=== PATIENT | female | born 1985 | race Asian ===

== ENCOUNTER 2020-03-19 13:07 | Inpatient (IN) | payer BC, OTHER ==
[2020-03-19 14:50] LABS: #Lymphocytes 1.6 thou/uL (1.20-3.40); #Monocytes 0.2 thou/uL (0.11-0.59); %Basophils 0.7 % (0.0-1.0); %Eosinophils 0.2 % (0.0-10.0); %Lymphocytes 26.5 % (21.0-51.0); %Monocytes 4.2 % (0.0-10.0); %Neutrophils 68.4 % (42.0-75.0); Hemoglobin 13.8 g/dL (12.0-16.0); Mean Corpuscular HGB CONC 32.6 g/dL (32.0-36.0); Mean Corpuscular Hemoglobin 32.4 pg (27.0-31.0); Mean Corpuscular Volume 99.5 fL (78.0-98.0); Mean Platelet Volume 9.9 fL (7.4-10.4); Platelet Count 179 thou/uL (130-400); RBC Distribution Width 12.3 % (11.5-14.5); Red Blood Cell (RBC) Count 4.27 mill/uL (4.20-5.40); White Blood Cell (WBC) Count 5.9 thou/uL (4.8-10.8)
[2020-03-19 15:08] LABS: BHCG - Serum Negative (NEGATIVE); Pregs Control Background? CLEAR/WHITE (CLR/WHITE); Pregs Control Bar Appear? YES (CONTROL BAR)
[2020-03-19 15:11] LABS: ALT (SGPT) 20 U/L (8-55); AST (SGOT) 21 U/L (5-34); Albumin 4.3 g/dL (3.5-5.0); Alkaline Phosphatase 45 U/L (40-110); Anion Gap 13 mmol/L (10-20); BUN (Urea Nitrogen) 10 mg/dL (7.0-18.7); Bilirubin, Total 0.4 mg/dL (0.2-1.2); Calc. Creatinine Clearance 0 mL/min (70-130); Calcium 9.1 mg/dL (7.8-10.44); Carbon Dioxide 26 mmol/L (22-29); Chloride 104 mmol/L (98-107); Estimated GFR-MDRD Greater than 90; Globulin 3.2 g/dL (2.4-3.5); Glucose 116 mg/dL (70-105); Potassium 3.9 mmol/L (3.5-5.1); Protein, Total 7.5 g/dL (6.0-8.3); Sodium 139 mmol/L (136-145)
--- NOTE | 2020-03-19 15:17 | CT ---
CT BRAIN WITHOUT CONTRAST: HISTORY: Multiple sclerosis exacerbation FINDINGS: No evidence of acute infarct, hemorrhage, midline shift or abnormal extra-axial fluid collections is seen. The ventricular size is appropriate and the basilar cisterns are patent. The bony calvarium is intact. The visualized paranasal sinuses and mastoid air cells are well aerated. IMPRESSION: No CT evidence of acute intracranial process. Contrast-enhanced MRI would be helpful for better evaluation.
[2020-03-19] MEDS ORDERED: DEXTROSE 5% IVPB SCH (16:00)
[2020-03-19] MEDS ORDERED: WATER IVPB SCH (16:00)
[2020-03-19] MEDS ORDERED: [UNRECOGNIZED DRUG - OTHER] IVPB SCH (16:00)
[2020-03-19] MEDS ORDERED: methylPREDNISolone Sod Succ 1,000 MG in Sodium Chloride 0.9% 100 ML IVPB SCH (16:00)
[2020-03-19] MEDS ORDERED: Calcium Carbonate 500 MG ChewTAB PO PRN (17:24)
[2020-03-19] MEDS ORDERED: Guaifenesin DM 100-10/5 ML UDCUP PO PRN (17:24)
[2020-03-19] MEDS ORDERED: Bisacodyl 10 MG SUPP PR PRN (17:24)
[2020-03-19] MEDS ORDERED: Senokot S 8.6-50 MG TAB PO PRN (17:24)
[2020-03-19] MEDS ORDERED: Ondansetron PF 4 MG/2 ML Vial IVP PRN (17:24)
[2020-03-19] MEDS ORDERED: HYDROcodone/Acetaminophen 5/325 mg Tablet PO PRN (17:24)
[2020-03-19] MEDS ORDERED: Acetaminophen 325 MG TAB PO PRN (17:24)
--- NOTE | 2020-03-19 19:10 | HP ---
REASON FOR ADMISSION: Possible multiple sclerosis flare up. HISTORY OF PRESENTING ILLNESS: The patient gives history of having weakness in her thigh muscles and had difficulty walking from last 3 days now. This has been progressively getting worse with the patient falling multiple times. She is able to take five steps, but then becomes very weak after that. She has known history of multiple sclerosis diagnosed 10 years back. This was diagnosed in [facility]. She had MRI and CSF analysis done as well for initial episode of visual loss. She was given high-dose steroids then and was not placed on any maintenance therapy. Two years back in 2018, the patient had visual symptoms including blurry vision and visual loss, but then gained back all of it with another round of steroid therapy. She was offered maintenance therapy, but the patient had refused them. She moved this year to .. 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 She had some visual symptoms day before with loss of central vision, but her vision is back to normal this morning. She has no complaints of difficulty breathing. She has no complaints of chest pain. No exposure to COVID-19 virus or fever. The patient states it was stressful moving here with the start of the college year. PAST MEDICAL AND SURGICAL HISTORY: History of multiple sclerosis diagnosed 10 years back. No surgical history. CURRENT MEDICATIONS: None. ALLERGIES: NO KNOWN DRUG ALLERGIES. PERSONAL HISTORY: Does not abuse alcohol or drugs. No history of smoking. FAMILY HISTORY: Both parents are healthy and living, who has a brother who is healthy as well. No family history of multiple sclerosis or autoimmune disease. 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 CODE STATUS: Full. Power of consumer attorney is her parents. REVIEW OF SYSTEMS: CONSTITUTIONAL: Negative for weight loss or gain, ability to conduct usual activities. SKIN: Negative for rash, itching. EYES: Negative for double vision, pain. ENT/MOUTH: Negative for nose bleeding, neck stiffness, pain, tenderness. CARDIOVASCULAR: Negative for palpitations, dyspnea on exertion, orthopnea. RESPIRATORY: Negative for shortness of breath, wheezing, cough, hemoptysis, fever or night sweats. GASTROINTESTINAL: Negative for poor appetite, abdominal pain, heartburn, nausea, vomiting, constipation, or diarrhea. GENITOURINARY: Negative for urgency, frequency, dysuria, nocturia. MUSCULOSKELETAL: Negative for pain, swelling. NEUROLOGIC/PSYCHIATRIC: Negative for anxiety, depression. ALLERGY/IMMUNOLOGIC: Negative for skin rash, bleeding tendency. PHYSICAL EXAMINATION: GENERAL: The patient is a 34-year-old female, who is currently not in any acute distress. VITAL SIGNS: Blood pressure 114/34, pulse 70 per minute, respiratory rate 16 per minute, temperature 97.7 degrees Fahrenheit, saturating 98% on room air. NECK: Supple. No elevated JVD. HEENT: Eyes; extraocular muscles intact. Pupils reacting to light. Oral cavity, mucous membranes are moist. No exudates or congestion. CARDIOVASCULAR SYSTEM: S1 and S2 heard. Regular rhythm. RESPIRATORY SYSTEM: Air entry 2+ bilateral. No rales or rhonchi. ABDOMEN: Soft. Bowel sounds heard. No tenderness, rigidity, or guarding. EXTREMITIES: No peripheral edema or calf tenderness. VASCULAR SYSTEM: Peripheral pulses 2+ bilateral. No ischemic ulcerations or gangrene. CENTRAL NERVOUS SYSTEM: Cranial nerves are grossly intact. Motor system, strength in right lower extremity is 4/5. All other extremities are 5/5. Reflexes are 2+ bilateral. Babinski is downgoing. Gait was not tested. PSYCHIATRIC SYSTEM: The patient's mood is euthymic. No hallucinations or delusions. LABORATORY DATA: H and H 13 and 42, platelet count is 179, white count of 5.9, MCV is 99 with 68% neutrophils. BUN 10, creatinine 0.7, serum glucose is 116, serum bicarb is 26. LFTs are within normal limits. Albumin 4.3. Serum test is negative. CT brain done shows no acute intracranial process. CLINICAL IMPRESSION AND PLAN: The patient will be admitted to stroke unit for possible multiple sclerosis flare up. ER physician has spoken to Dr. Jones and has been advised to give methylprednisolone 1 g IV for a total of three days. She will be on Protonix 40 mg daily along with low-dose aspirin. We will obtain MRI with contrast. COVID-19 PCR test will be done as well. We will also obtain consultation with Dr. Jones for Neurology. The patient has had waxing and waning neurologic symptoms from last 3 days now. Her first initial diagnosis was 10 years back. She had flare up two years back and her third flare up has come back within two years. Likely, she will need maintenance therapy after her current recovery. I have counseled her regarding compliance with maintenance therapy. She taking any medications on a daily basis. Job ID: [id number]
[2020-03-19 22:40] VITALS: BMI 19.8
[2020-03-20 06:14] LABS: ALT (SGPT) 15 U/L (8-55); AST (SGOT) 14 U/L (5-34); Alkaline Phosphatase 44 U/L (40-110); Anion Gap 15 mmol/L (10-20); BUN (Urea Nitrogen) 12 mg/dL (7.0-18.7); Bilirubin, Total 0.3 mg/dL (0.2-1.2); Calc. Creatinine Clearance 101 mL/min (70-130); Calcium 8.9 mg/dL (7.8-10.44); Carbon Dioxide 21 mmol/L (22-29); Chloride 107 mmol/L (98-107); Estimated GFR-MDRD Greater than 90; Globulin 3.1 g/dL (2.4-3.5); Glucose 173 mg/dL (70-105); Potassium 4.1 mmol/L (3.5-5.1); Protein, Total 7.1 g/dL (6.0-8.3); Sodium 139 mmol/L (136-145)
[2020-03-20] MEDS ORDERED: Dextrose 5% in Water 1,000 ML IV PRN (07:28)
[2020-03-20] MEDS ORDERED: Dextrose 50% Abboject 50 ML SYRINGE SLOW IVP PRN (07:28)
[2020-03-20] MEDS ORDERED: methylPREDNISolone Sod Succ/PF 125 MG/2 ML VIAL IVP SCH (09:00)
[2020-03-20] MEDS ORDERED: Hydrocortisone Sod Succ/PF 1,000 MG in Sodium Chloride 0.9% 50 ML IVPB SCH (09:00)
[2020-03-20] MEDS: Cyanocobalamin (Vitamin B-12) 1,000 MCG TAB PO SCH (09:25)
[2020-03-20] MEDS: Aspirin Chewable 81 MG TAB PO SCH (09:26)
[2020-03-20] MEDS: Enoxaparin Sodium 40 MG/0.4 ML SYRINGE SC SCH (09:27)
--- NOTE | 2020-03-20 09:27 | MRI ---
MRI BRAIN WITH AND WITHOUT CONTRAST: INDICATION: MS. COMPARISON: No prior MRI available. Correlation made to CT of 03/19/2020. FINDINGS: Ventricles have normal size and position.. There are scattered white matter hyperintensities consistent with the history of MS. Several of thes e intensities have characteristics typical of Max's fingers consistent with the history of MS. There is a large asymmetric area of white matter hypointensity on FLARE and T2 in the posterior periv entricular white matter extending into the centrum semiovale measuring up to 2 cm. This asymmetric l esion shows dense central enhancement and would indicate an active MS plaque. There is no restricted diffusion. No other abnormal enhancement. Intracranial internal carotid arteries, cerebral arteries, basilar arteries, and venous sinuses show expected flow voids. Paranasal sinuses and mastoids are clear. IMPRESSION: There are white matter hyperintensities which are consistent with the history of multiple sclerosis. There is a large asymmetric lesion in the posterior periventricular white matter on the left extendi ng into the centrum semiovale measuring up to 2 cm. This lesion demonstrates dense central enhanceme nt and would indicate an active demyelination plaque. Suggest short-term followup. Comparison with old exams would be of benefit to assess interval change. POS: ALETHA
[2020-03-20] MEDS: Folic Acid 1 MG TAB PO SCH (09:28)
[2020-03-20] MEDS: methylPREDNISolone Sod Succ 1 GM in Sodium Chloride 0.9% 250 ML 250 ML IVPB SCH (09:28)
--- NOTE | 2020-03-20 11:04 | PDOC.HOSPP ---
- Subjective Encounter Date: 03/20/20 Encounter Time: 10:00 Subjective: no new neurologic complaints still has right thigh muscle weakness and left leg parasthesias (has normal touch but cannot feel prick or deep pain) no trouble breathing - Objective Vital Signs & Weight: Vital Signs (12 hours) Temp Pulse Pulse Resp BP BP BP 03/20/20 09:43 57 L 114/56 L 118/55 L 03/20/20 07:30 97.9 F 45 L 15 100/51 L 03/20/20 03:53 98.1 F 51 L 14 99/53 L 03/19/20 23:44 98 F 60 16 98/51 L Pulse Ox 03/20/20 09:43 03/20/20 07:30 97 03/20/20 03:53 97 03/19/20 23:44 96 Weight Weight 128 lb I&O: 03/19/20 03/20/20 03/21/20 06:59 06:59 06:59 Intake Total 200 120 Balance 200 120 Result Diagrams: 03/19/20 14:40 03/20/20 04:14 Additional Labs: Accuchecks 03/20/20 10:26 POC Glucose 185 H Hospitalist ROS - Medication Medications: Active Medications Generic Name Dose Route Start Last Admin Trade Name Freq PRN Reason Stop Dose Admin Aspirin 81 mg 03/20/20 09:00 03/20/20 09:26 Aspirin Chewable PO 81 mg DAILY SHAHNAZ Administration Cyanocobalamin 1,000 mcg 03/20/20 09:00 03/20/20 09:25 Vitamin B-12 PO 1,000 mcg DAILY SHAHNAZ Administration Enoxaparin Sodium 40 mg 03/20/20 09:00 03/20/20 09:27 Lovenox SC 40 mg 09 SHAHNAZ Administration Folic Acid 1 mg 03/20/20 09:00 03/20/20 09:28 Folvite PO 1 mg DAILY SHAHNAZ Administration Methylprednisolone Sodium 266 mls @ 266 mls/hr 03/20/20 09:00 03/20/20 09:28 Succinate 1 gm/ Sodium IVPB 266 mls Chloride Q24HR SHAHNAZ Administration Pantoprazole Sodium 40 mg 03/19/20 21:00 03/20/20 09:25 Protonix PO 40 mg BID SHAHNAZ Administration Sodium Chloride 10 ml 03/19/20 21:00 03/20/20 09:28 Flush - Normal Saline IVF 10 ml Q12HR SHAHNAZ Administration - Exam General Appearance: awake alert Eye: PERRL, anicteric sclera ENT: no oropharyngeal lesions, moist mucosa Neck: supple, no JVD Heart: RRR, no murmur Respiratory: no wheezes, no rales Gastrointestinal: soft, non-tender, non-distended, normal bowel sounds Extremities: no cyanosis, no edema Neurological: cranial nerve grossly intact Neurological - other findings: right leg 4/5, parasthesias in left leg/foot area Psychiatric: normal affect, A&O x 3 Hosp A/P (1) Multiple sclerosis exacerbation Code(s): G35 - MULTIPLE SCLEROSIS Status: Acute (2) Glucose intolerance Code(s): E74.39 - OTHER DISORDERS OF INTESTINAL CARBOHYDRATE ABSORPTION Status : Acute - Plan is on methylprednisolone 1g daily x 3 days, 2nd dose today humalog coverage for glucose intolerance sec to high dose steroids MRI results noted neuro to see her today, will need maintenance treatment due to her exac freq PT/OT to mobilize her as tolerated
[2020-03-20] MEDS: HumaLOG 300 UNITS/3 ML VIAL SC PRN ×2 (11:09→17:07)
[2020-03-20 11:48] LABS: SARS-CoV-2 MS2 Positive; SARS-CoV-2 N Gene Negative; SARS-CoV-2 S Gene Negative; SARS-CoV-2 by NAA Not Detected (NotDetected); SARS-CoV-2 orf1ab Negative
[2020-03-20] MEDS ORDERED: Magnevist 469MG/ML 20 ML VIAL ONE (13:09)
--- NOTE | 2020-03-20 13:11 | CON ---
NEUROLOGY CONSULTATION DATE OF CONSULTATION: 03/20/2020 REASON FOR CONSULTATION: Multiple sclerosis exacerbation. HISTORY OF PRESENT ILLNESS: Ms. Glover is a 34-year-old female with history of multiple sclerosis diagnosed 10 years ago, not on any long-term immunomodulating agent, presented to the emergency room with 3-day weakness of the lower extremities and difficulty walking. Per patient, she became progressively weak over the last 3 days and then came to the hospital because there was a concern of MS exacerbation. According to the patient her previous exacerbation are usually blurred vision and difficulty to focus. However, this is the 1st time she had weakness in the lower extremity. The patient denies any problem with urination, difficulty breathing, swallowing or speech or focal weakness, dizziness, vertigo, urinary urgency or loss of vision associated with this episode. She was diagnosed with multiple sclerosis through MRI and CSF analysis in [facility] and long-term immunomodulating therapy was offered, but she declined at that time. 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 She also complained of some problem with central vision which resolves on its own. REVIEW OF SYSTEMS: The patient denies nausea, vomiting, headache, dizziness, recent illness or sick contacts or exposure to COVID. On review of systems all 14 systems were reviewed and were negative except the pertinent positives and negatives mentioned in the HPI. PAST MEDICAL HISTORY: Multiple sclerosis diagnosed 10 years ago. PAST SURGICAL HISTORY: None. CURRENT MEDICATIONS: None. ALLERGIES: NO KNOWN DRUG ALLERGIES. 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 She denies alcohol, illegal drug abuse or smoking. FAMILY HISTORY: The no family history of multiple sclerosis or autoimmune disease. - Objective Vital Signs & Weight: Vital Signs (12 hours) Temp Pulse Pulse Resp BP BP BP 03/20/20 09:43 57 L 114/56 L 118/55 L 03/20/20 07:30 97.9 F 45 L 15 100/51 L 03/20/20 03:53 98.1 F 51 L 14 99/53 L 03/19/20 23:44 98 F 60 16 98/51 L Pulse Ox 03/20/20 09:43 03/20/20 07:30 97 03/20/20 03:53 97 03/19/20 23:44 96 Weight Weight 128 lb I&O: 03/19/20 03/20/20 03/21/20 06:59 06:59 06:59 Intake Total 200 120 Balance 200 120 Additional Labs: Accuchecks 03/20/20 10:26 POC Glucose 185 H Active Medications Generic Name Dose Route Start Last Admin Trade Name Gina PRN Reason Stop Dose Admin Aspirin 81 mg 03/20/20 09:00 03/20/20 09:26 Aspirin Chewable PO 81 mg DAILY SHAHNAZ Administration Cyanocobalamin 1,000 mcg 03/20/20 09:00 03/20/20 09:25 Vitamin B-12 PO 1,000 mcg DAILY SHAHNAZ Administration Enoxaparin Sodium 40 mg 03/20/20 09:00 03/20/20 09:27 Lovenox SC 40 mg 09 SHAHNAZ Administration Folic Acid 1 mg 03/20/20 09:00 03/20/20 09:28 Folvite PO 1 mg DAILY SHAHNAZ Administration Methylprednisolone Sodium 266 mls @ 266 mls/hr 03/20/20 09:00 03/20/20 09:28 Succinate 1 gm/ Sodium IVPB 266 mls Chloride Q24HR SHAHNAZ Administration Pantoprazole Sodium 40 mg 03/19/20 21:00 03/20/20 09:25 Protonix PO 40 mg BID SHAHNAZ Administration Sodium Chloride 10 ml 03/19/20 21:00 03/20/20 09:28 Flush - Normal Saline IVF 10 ml Q12HR SHAHNAZ Administration - Exam General Appearance: awake alert Eye: PERRL, anicteric sclera ENT: no oropharyngeal lesions, moist mucosa Neck: supple, no JVD Heart: RRR, no murmur Respiratory: no wheezes, no rales Gastrointestinal: soft, non-tender, non-distended, normal bowel sounds Extremities: no cyanosis, no edema Neurological: : Mental status: The patient is alert and oriented to person, place, and time. Speech is clear. Recent and remote memory intact. Fund of knowledge is appropriate. Cranial nerves 2 through 12 intact. Motor, muscle tone and bulk are normal. Strength 5/5 in the upper extremity, 4+/5 in the right lower extremity. Sensory Decreased sensation in left LE Gait deferred due to patient's safety reasons. Cerebellar: Finger-nose testing intact. \ LABORATORY DATA: Data reviewed. I reviewed the labs which were essentially unremarkable. MRI of the brain with contrast was reviewed, which was consistent with demyelinating lesions consistent with multiple sclerosis. There is also active demyelinating region in the posterior periventricular white matter consistent with the patient's MS exacerbation. Hosp A/P (1) Multiple sclerosis exacerbation Code(s): G35 - MULTIPLE SCLEROSIS Status: Acute (2) Glucose intolerance Ms. Jared Glover is admitted to the Neurology floor for multiple sclerosis exacerbation. MRI brain with contrast confirmed recent flare. Continue Solu-Medrol 1 g intravenously q. 24 hours for 3 days. Today is day #2. Regular insulin sliding scale for steroid-induced hyperglycemia. Proton pump inhibitor for steroid-induced gastroesophageal reflux disease. Neuro checks every 4 hours. Physical Therapy/Occupatinoal Therapy/Speech. Continue medical management per primary team. The patient should follow up with outpatient neurology to discuss the option of long-term treatment . Plan discussed in detail with the with the patient, nursing staff and with the primary attending, Dr. Don. Job ID: [id number] MTDD
[2020-03-21 04:51] LABS: #Lymphocytes 1.9 thou/uL (1.20-3.40); #Monocytes 0.7 thou/uL (0.11-0.59); %Basophils 0.2 % (0.0-1.0); %Eosinophils 0.2 % (0.0-10.0); %Lymphocytes 13.2 % (21.0-51.0); %Monocytes 4.8 % (0.0-10.0); %Neutrophils 81.6 % (42.0-75.0); Hemoglobin 12.7 g/dL (12.0-16.0); Mean Corpuscular HGB CONC 32.6 g/dL (32.0-36.0); Mean Corpuscular Hemoglobin 32.5 pg (27.0-31.0); Mean Corpuscular Volume 99.6 fL (78.0-98.0); Platelet Count 172 thou/uL (130-400); RBC Distribution Width 12.4 % (11.5-14.5); White Blood Cell (WBC) Count 14.7 thou/uL (4.8-10.8)
[2020-03-21 05:13] LABS: ALT (SGPT) 14 U/L (8-55); AST (SGOT) 16 U/L (5-34); Albumin 3.9 g/dL (3.5-5.0); Alkaline Phosphatase 43 U/L (40-110); Anion Gap 12 mmol/L (10-20); BUN (Urea Nitrogen) 11 mg/dL (7.0-18.7); Bilirubin, Total 0.3 mg/dL (0.2-1.2); Calc. Creatinine Clearance 103 mL/min (70-130); Calcium 9.2 mg/dL (7.8-10.44); Carbon Dioxide 28 mmol/L (22-29); Chloride 105 mmol/L (98-107); Estimated GFR-MDRD Greater than 90; Globulin 3.2 g/dL (2.4-3.5); Glucose 143 mg/dL (70-105); Potassium 4.1 mmol/L (3.5-5.1); Protein, Total 7.1 g/dL (6.0-8.3); Sodium 141 mmol/L (136-145)
[2020-03-21 07:31] VITALS: BP 113/55; TEMP 97.9
[2020-03-21] MEDS: Folic Acid 1 MG TAB PO SCH (08:30)
[2020-03-21] MEDS: Cyanocobalamin (Vitamin B-12) 1,000 MCG TAB PO SCH (08:30)
[2020-03-21] MEDS: methylPREDNISolone Sod Succ 1 GM in Sodium Chloride 0.9% 250 ML 250 ML IVPB SCH (08:31)
[2020-03-21] MEDS: Enoxaparin Sodium 40 MG/0.4 ML SYRINGE SC SCH (09:01)
[2020-03-21] MEDS: Aspirin Chewable 81 MG TAB PO SCH (09:02)
--- NOTE | 2020-03-21 15:20 | DIS ---
DATE OF ADMISSION: 03/19/2020 DATE OF DISCHARGE: 03/21/2020 DISCHARGE DISPOSITION: To home. PRIMARY DISCHARGE DIAGNOSES: Multiple sclerosis exacerbation, glucose intolerance due to high-dose steroids. PROCEDURES DONE DURING HOSPITALIZATION: MRI brain with and without contrast done showed white matter hyperintensities consistent with history of multiple sclerosis. There was a large asymmetric lesion in the posterior periventricular white matter on the left extending to the centrum semiovale measuring up to 2 cm. This lesion also demonstrated dense central enhancement and would indicate an active demyelination plaque. H and H 12 and 38, platelet count is 172, MCV is 99. BUN 11, creatinine 0.7, albumin 3.9. Serum test was negative. Folic acid 10, B12 of 525. COVID-19 PCR was not detected on 03/19/2020. DISCHARGE MEDICATIONS: 1. Folic acid 1 mg p.o. daily. 2. Multivitamin one tablet once daily. 3. Protonix 40 mg p.o. daily for another 10 days. DISCHARGE PLAN: The patient needs to follow up with Dr. Jones within a week. BRIEF COURSE DURING HOSPITALIZATION: The patient initially got admitted on 03/19/2020 with complaints of right thigh weakness and left leg paresthesias, specifically loss of pinprick and deep pain sensation in the left leg and ankle area. She has known history of multiple sclerosis diagnosed 10 years back. She had a flare up 2 years back with visual loss and regained complete vision then. In view of this history, the patient has had MRI with and without contrast done, which confirmed findings of MS plaque. She was evaluated by Dr. Timmons for Neurology. The patient was on methylprednisolone 1 g IV for a total of 3 doses. Her neurologic symptoms are slowly resolving. The patient has regained strength in her right thigh. Her left leg paresthesias are still present. The patient is wanting to go home today. She has been worried about her financial bills despite reassurance. The patient wants to follow up with Dr. Jones in the outpatient setting at the earliest. In view of this, she is being discharged home. Please note, I have seen and examined the patient on the day of discharge. Job ID: [id number]
--- NOTE | 2020-03-21 20:55 | EKG ---
Test Reason : Blood Pressure : / mmHG Vent. Rate : 053 BPM Atrial Rate : 053 BPM P-R Int : 164 ms QRS Dur : 090 ms QT Int : 464 ms P-R-T Axes : 064 071 067 degrees QTc Int : 435 ms Sinus bradycardia Cannot rule out Anterior infarct , age undetermined Abnormal ECG Confirmed by Carlie SIERRA ([id number]) on 03/21/2020 8:55:13 PM Referred By: SALMA Confirmed By:Carlie SIERRA
== END 2020-03-21 10:36 | disposition home or self-care (01) | DRG 60 ==
LOC: ERS 13:07 → 2SE 16:49
PROVIDERS: ADMIT Internal Medicine; ATTEND Internal Medicine
DX: G35 Multiple sclerosis (principal); T38.0X5A Adverse effect of glucocorticoids and synthetic analogues, initial encounter; R73.02 Impaired glucose tolerance (oral); Z20.828 Contact with and (suspected) exposure to other viral communicable diseases; K21.9 Gastro-esophageal reflux disease without esophagitis
CPT/HCPCS: 36415; 36416; 70450; 70553; 80053; 82607; 82746; 84443; 84484; 84703; 85025; 87635; 93005; 93010; 93306; 94760; A9579; J0210; J1650; J2930; J3490; J7050; J7070; U0003

== ENCOUNTER 2020-04-23 13:16 | Inpatient (IN) | payer BC, OTHER ==
[2020-04-23] MEDS ORDERED: Magnevist 469MG/ML 20 ML VIAL ONE (14:02)
[2020-04-23 14:33] LABS: #Lymphocytes 1.9 thou/uL (1.20-3.40); #Monocytes 0.4 thou/uL (0.11-0.59); #Neutrophils 4.4 thou/uL (1.40-6.50); %Basophils 0.6 % (0.0-1.0); %Eosinophils 0.3 % (0.0-10.0); %Monocytes 5.9 % (0.0-10.0); %Neutrophils 65.2 % (42.0-75.0); Hemoglobin 13.7 g/dL (12.0-16.0); Mean Corpuscular HGB CONC 33.8 g/dL (32.0-36.0); Mean Corpuscular Hemoglobin 33.3 pg (27.0-31.0); Mean Corpuscular Volume 98.6 fL (78.0-98.0); Platelet Count 200 thou/uL (130-400); RBC Distribution Width 11.9 % (11.5-14.5); Red Blood Cell (RBC) Count 4.11 mill/uL (4.20-5.40); White Blood Cell (WBC) Count 6.7 thou/uL (4.8-10.8)
[2020-04-23 14:44] LABS: BHCG - Serum Negative (NEGATIVE); Pregs Control Background? CLEAR/WHITE (CLR/WHITE); Pregs Control Bar Appear? YES (CONTROL BAR)
[2020-04-23 14:55] LABS: ALT (SGPT) 10 U/L (8-55); AST (SGOT) 16 U/L (5-34); Albumin 4.5 g/dL (3.5-5.0); Alkaline Phosphatase 47 U/L (40-110); Anion Gap 12 mmol/L (10-20); BUN (Urea Nitrogen) 13 mg/dL (7.0-18.7); Bilirubin, Total 0.3 mg/dL (0.2-1.2); Calc. Creatinine Clearance 0 mL/min (70-130); Calcium 9.6 mg/dL (7.8-10.44); Carbon Dioxide 28 mmol/L (22-29); Chloride 103 mmol/L (98-107); Estimated GFR-MDRD 84; Globulin 3.2 g/dL (2.4-3.5); Glucose 102 mg/dL (70-105); Potassium 4.2 mmol/L (3.5-5.1); Protein, Total 7.7 g/dL (6.0-8.3); Sodium 139 mmol/L (136-145)
[2020-04-23] MEDS ORDERED: Pantoprazole 40 MG VIAL ONE (16:51)
[2020-04-23] MEDS ORDERED: SODIUM CHLORIDE 0.9% IVPB SCH (17:15)
[2020-04-23] MEDS ORDERED: METHYLPREDNISOLONE SOD SUCC IVPB SCH (17:15)
[2020-04-23] MEDS ORDERED: methylPREDNISolone Sod Succ 1 GM in Sodium Chloride 0.9% 100 ML IVPB SCH (17:45)
--- NOTE | 2020-04-23 18:05 | PDOC.HHP ---
Hospitalist HPI - History of Present Illness Lower leg weakness History of Present Illness: This is a 32-year-old female patient history of multiple sclerosis who presents with increasing spasticity of her left lower extremity and extensive weakness on the right lower extremity for the past couple of weeks. She was seen here approximately a month ago and was started on high-dose steroids. She however failed to follow-up with neurology. Given worsening symptoms return back to the ED for further assessment. He denies any fever, difficulty micturition, incontinence, upper limb weakness nausea vomiting diarrhea chills or chest pain. At presentation Blood pressure was 114/56, pulse 70, respiration rate 16 and temperature 97.9. Was saturating at 98% on room air. His labs are otherwise generally unrem arkable. In the ED was started on IV Solu-Medrol thousand milligrams. Also received pantoprazole Neurology was consulted and recommended admission with steroids. Hospitalist ROS - Review of Systems Constitutional: denies: fever, chills Respiratory: denies: cough, shortness of breath, hemoptysis, SOB with excertion Cardiovascular: denies: chest pain, palpitations, orthopnea, paroxysmal noc. dyspnea Genitourinary: denies: dysuria, frequency, incontinence, retention Neurological: reports: weakness (Right lower leg). denies: change in speech Other: Left leg spasticity Hospitalist History - Past Medical History Other Medical History: Multiple sclerosis - Past Surgical History Other Surgical History: None - Family History Other Family History: None of significance. 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 Supported by a friend - Exam General Appearance: awake alert Eye: PERRL, anicteric sclera Heart: RRR, no murmur, no gallops, normal peripheral pulses Respiratory: no wheezes, no rales, no ronchi, no tachypnea Gastrointestinal: soft, non-tender, non-distended, normal bowel sounds Extremities: no cyanosis, no clubbing, no edema Neurological: cranial nerve grossly intact, normal sensation to touch Neurological - other findings: , 5/5 in upper and lower limbs. Psychiatric: A&O x 3 Hospitalist Results - Labs Result Diagrams: 04/24/20 04:38 04/24/20 04:38 Lab results: WBC 6.7 thou/uL (4.8-10.8) 04/23/20 14:25 Hgb 13.7 g/dL (12.0-16.0) 04/23/20 14:25 Hct 40.5 % (36.0-47.0) 04/23/20 14:25 MCV 98.6 fL (78.0-98.0) H 04/23/20 14:25 Plt Count 200 thou/uL (130-400) 04/23/20 14:25 Neutrophils % 65.2 % (42.0-75.0) 04/23/20 14:25 Sodium 139 mmol/L (136-145) 04/23/20 14:25 Potassium 4.2 mmol/L (3.5-5.1) 04/23/20 14:25 Chloride 103 mmol/L (98-107) 04/23/20 14:25 Carbon Dioxide 28 mmol/L (22-29) 04/23/20 14:25 BUN 13 mg/dL (7.0-18.7) 04/23/20 14:25 Creatinine 0.79 mg/dL (0.6-1.1) 04/23/20 14:25 Glucose 102 mg/dL (70-105) 04/23/20 14:25 Calcium 9.6 mg/dL (7.8-10.44) 04/23/20 14:25 Total Bilirubin 0.3 mg/dL (0.2-1.2) 04/23/20 14:25 AST 16 U/L (5-34) 04/23/20 14:25 ALT 10 U/L (8-55) 04/23/20 14:25 Alkaline Phosphatase 47 U/L (40-110) 04/23/20 14:25 Serum Total Protein 7.7 g/dL (6.0-8.3) 04/23/20 14:25 Albumin 4.5 g/dL (3.5-5.0) 04/23/20 14:25 Hospitalist H&P A/P - Plan Plan: This is a 34-year-old female patient with a history of multiple sclerosis presen ting with right lower leg spasticity and left lower leg weakness concerning for multiple sclerosis flare. Multiple sclerosis flare Receiving Solu-Medrol thousand milligrams IVwe will continue For neurology evaluation in a.m. VTE prophylaxis-none
--- NOTE | 2020-04-23 18:39 | MRI ---
MRI BRAIN PERFORMED WITHOUT CONTRAST ENHANCEMENT: History: Exacerbation of MS symptoms. Comparison: 03-20-2020 FINDINGS: The ventricular and cisternal system is slightly prominent for patient's age. Mildly prominent sulci. The periventricular white matter changes which have a characteristic appearance of MS are similar to the prior exam. The one exception is the larger focus which showed enhancement on the prior examinati on in the left posterior periventricular white matter, definitely less prominent and shows less prono unced enhancement than on that examination. There is a much more prominent lesion which is T1 hypointense and T2 and FLAIR hyperintense at the le seble of the right cerebral peduncle. This is only a very subtle focus of signal change on the previous examination. It does show enhancement on the post contrast images which was not present on the prior study. No mass effect. IMPRESSION: 1. New MS lesion involving the right cerebral peduncle. 2. The periventricular white matter changes are similar with the exception of the more active focus t hat was seen in the left posterior periventricular region is less prominent and shows less pronounced enhancement on today's exam. POS: OFF
[2020-04-23] MEDS ORDERED: Acetaminophen 325 MG TAB PO PRN (21:32)
[2020-04-23] MEDS ORDERED: Ondansetron PF 4 MG/2 ML Vial IVP PRN (21:32)
[2020-04-23] MEDS ORDERED: Ondansetron ODT 4 MG TAB PO PRN (21:32)
[2020-04-23] MEDS ORDERED: Dextrose 5% in Water 1,000 ML IV PRN (21:33)
[2020-04-23] MEDS ORDERED: HumaLOG 300 UNITS/3 ML VIAL SC PRN (21:33)
[2020-04-23] MEDS ORDERED: Dextrose 50% Abboject 50 ML SYRINGE SLOW IVP PRN (21:33)
[2020-04-24 00:24] VITALS: BMI 20.9
[2020-04-24 05:20] LABS: Anion Gap 12 mmol/L (10-20); BUN (Urea Nitrogen) 12 mg/dL (7.0-18.7); Calc. Creatinine Clearance 112 mL/min (70-130); Calcium 8.8 mg/dL (7.8-10.44); Carbon Dioxide 24 mmol/L (22-29); Chloride 105 mmol/L (98-107); Estimated GFR-MDRD Greater than 90; Glucose 154 mg/dL (70-105); Potassium 4.1 mmol/L (3.5-5.1); Sodium 137 mmol/L (136-145)
[2020-04-24 05:39] LABS: Hemoglobin 13.3 g/dL (12.0-16.0); Mean Corpuscular HGB CONC 32.3 g/dL (32.0-36.0); Mean Corpuscular Volume 99.3 fL (78.0-98.0); Mean Platelet Volume 9.2 fL (7.4-10.4); Platelet Count 191 thou/uL (130-400); RBC Distribution Width 11.8 % (11.5-14.5); Red Blood Cell (RBC) Count 4.14 mill/uL (4.20-5.40); White Blood Cell (WBC) Count 5.9 thou/uL (4.8-10.8)
[2020-04-24 06:07] LABS: Band 7 % (5-11); Lymphocytes 21 % (21-51); MDiff Complete? YES; Monocytes 1 % (0-10); Neutrophil 68 % (42-75); Reactive Lymphocytes 3 % (0-10)
--- NOTE | 2020-04-24 09:31 | PDOC.HOSPP ---
- Subjective Encounter Date: 04/24/20 Encounter Time: 09:31 Subjective: Patient was seen and examined in bed. Showed a generally good night. Has no new complaints. Denies any chest pain or shortness of breath. Still has stiffness in her legs mainly on the right but denies any visual changes. - Objective Vital Signs & Weight: Vital Signs (12 hours) Temp Pulse Resp BP Pulse Ox 04/24/20 07:02 97.8 F 55 L 17 96/54 L 97 04/24/20 03:41 97.6 F 50 L 13 108/58 L 98 04/23/20 23:01 97.9 F 56 L 15 97/53 L 97 Weight Weight 133 lb 6.4 oz Result Diagrams: 04/24/20 04:38 04/24/20 04:38 Additional Labs: Accuchecks 04/24/20 04/24/20 04/23/20 08:34 03:51 23:42 POC Glucose 125 H 153 H 164 H - Exam General Appearance: awake alert ENT: normocephalic atraumatic, no oropharyngeal lesions Heart: RRR, no murmur, no gallops, normal peripheral pulses Respiratory: no wheezes, no rales, no ronchi Gastrointestinal: soft, non-tender, non-distended, normal bowel sounds Neurological: cranial nerve grossly intact, no weakness Psychiatric: A&O x 3 Hosp A/P - Plan 35-year-old female admitted on account of multiple sclerosis flare. MS flare Received 1 g Solu-Medrol a day ago We will continue Solu-Medrol for today neurochecks, prophylactic pantoprazole PT/OT Awaiting neurology assessment.
[2020-04-24 12:05] LABS: SARS-CoV-2 MS2 Positive; SARS-CoV-2 N Gene Negative; SARS-CoV-2 S Gene Negative; SARS-CoV-2 by NAA Not Detected (NotDetected); SARS-CoV-2 orf1ab Negative
--- NOTE | 2020-04-24 15:46 | CON ---
NEUROLOGY CONSULTATION DATE OF CONSULTATION: 04/24/2020 REASON FOR CONSULTATION: Left lower extremity weakness. HISTORY OF PRESENT ILLNESS: Ms. Jared Glover is a 34-year-old female with medical history significant for multiple sclerosis, presented with increased spasticity of her left lower extremity and weakness of the right lower extremity for the past couple of weeks. Per the patient, the patient was seen at our hospital a month ago and was given a course of high dose steroid. She was advised to follow up with Neurology Clinic regarding the need for long-term immunomodulating agent. Unfortunately, she was unable to follow up and now back again with MS exacerbation. MRI of the brain was done, which was consistent with new demyelinating lesions. The patient denies nausea, vomiting, headache, chest pain, abdominal pain, fever, loss of smell, loss of taste, recent exposure to COVID, blurred vision, loss of vision, or problems with swallowing associated with the new symptoms. In the emergency room, she was given Solu-Medrol 1 g IV and admitted to complete the three day course of IV steroids for MS exacerbation. REVIEW OF SYSTEMS: All 14 systems were reviewed and were negative except the pertinent positives and negatives mentioned in the HPI. PAST MEDICAL HISTORY: Multiple sclerosis. PAST SURGICAL HISTORY: None. SOCIAL HISTORY: The patient lives alone. She is supported by a friend. ALLERGIES: NKDA Vital Signs & Weight: Vital Signs (12 hours) Temp Pulse Resp BP Pulse Ox 04/24/20 07:02 97.8 F 55 L 17 96/54 L 97 04/24/20 03:41 97.6 F 50 L 13 108/58 L 98 04/23/20 23:01 97.9 F 56 L 15 97/53 L 97 Weight Weight 133 lb 6.4 oz Additional Labs: Accuchecks 04/24/20 04/24/20 04/23/20 08:34 03:51 23:42 POC Glucose 125 H 153 H 164 H PHYSICAL EXAMINATION: General Appearance: awake alert Eye: PERRL, anicteric sclera Heart: RRR, no murmur, no gallops, normal peripheral pulses Respiratory: no wheezes, no rales, no ronchi, no tachypnea Gastrointestinal: soft, non-tender, non-distended, normal bowel sounds Extremities: no cyanosis, no clubbing, no edema Neurological: Mental status, the patient is alert and oriented to person, place, and time. Recent and remote memory, clear. Fund of knowledge is appropriate. Speech is clear. Cranial nerves 2 through 12 are intact. Motor, muscle tone and bulk are normal. Moving all 4 extremities equally and symmetrically. Strength 5/5 in both right and left upper extremities, 4+/5 in the right lower extremity. Sensory, decreased sensation to light touch in the left lower extremity. Cerebellar, finger-nose testing intact. Gait deferred due to the patient's safety reason. DATA REVIEWED: I reviewed the MRI of the brain, which was consistent with demyelinating lesions consistent with MS. There is also a new MS lesion in the right cerebral peduncle. Lab results: WBC 6.7 thou/uL (4.8-10.8) 04/23/20 14:25 Hgb 13.7 g/dL (12.0-16.0) 04/23/20 14:25 Hct 40.5 % (36.0-47.0) 04/23/20 14:25 MCV 98.6 fL (78.0-98.0) H 04/23/20 14:25 Plt Count 200 thou/uL (130-400) 04/23/20 14:25 Neutrophils % 65.2 % (42.0-75.0) 04/23/20 14:25 Sodium 139 mmol/L (136-145) 04/23/20 14:25 Potassium 4.2 mmol/L (3.5-5.1) 04/23/20 14:25 Chloride 103 mmol/L (98-107) 04/23/20 14:25 Carbon Dioxide 28 mmol/L (22-29) 04/23/20 14:25 BUN 13 mg/dL (7.0-18.7) 04/23/20 14:25 Creatinine 0.79 mg/dL (0.6-1.1) 04/23/20 14:25 Glucose 102 mg/dL (70-105) 04/23/20 14:25 Calcium 9.6 mg/dL (7.8-10.44) 04/23/20 14:25 Total Bilirubin 0.3 mg/dL (0.2-1.2) 04/23/20 14:25 AST 16 U/L (5-34) 04/23/20 14:25 ALT 10 U/L (8-55) 04/23/20 14:25 Alkaline Phosphatase 47 U/L (40-110) 04/23/20 14:25 Serum Total Protein 7.7 g/dL (6.0-8.3) 04/23/20 14:25 Albumin 4.5 g/dL (3.5-5.0) 04/23/20 14:25 ASSESSMENT AND PLAN: Ms. Jared Glover is a 34-year-old female with history significant for MS, diagnosed 10 years ago, presented with MS exacerbation. MRI of brain and the clinical presentation confirmed recent flare. Continue Solu- Medrol 1 g intravenously q.24 hours for 3 days, today is day #2. Regular insulin sliding scale for steroid-induced hyperglycemia. Proton pump inhibitor for steroid- induced gastroesophageal reflux disease. Neuro checks every 4 hours. Physical therapy, occupation therapy/speech. Continue medical management per primary team. The patient should follow up with outpatient Neurology to discuss long-term treatment option. Plan is discussed in detail with the patient and during MDR rounds. Thank you for the consult. Job ID: [id number] [facility] MED[facility] CENTERDorothy
[2020-04-24] MEDS: methylPREDNISolone Sod Succ 1 GM in Sodium Chloride 0.9% 250 ML 250 ML IVPB SCH (17:57)
[2020-04-25] MEDS ORDERED: Pantoprazole 40 MG GRANULES PACKET PO SCH (09:00)
[2020-04-25 11:48] VITALS: TEMP 98.2
--- NOTE | 2020-04-25 12:04 | PDOC.HOSPP ---
- Subjective Encounter Date: 04/25/20 Encounter Time: 12:04 Subjective: Patient was seen and examined in bed. No acute events overnight. She notes ongoing weakness in her lower limbs bilaterally. Denies any chest pain or shortness of breath or visual symptoms - Objective Vital Signs & Weight: Vital Signs (12 hours) Temp Pulse Pulse Pulse Resp BP BP 04/25/20 11:48 98.2 F 69 16 04/25/20 09:54 97.9 F 90 18 04/25/20 09:29 76 80 122/81 116/80 04/25/20 03:57 97.6 F 54 L 16 BP BP Pulse Ox 04/25/20 11:48 108/54 L 100 04/25/20 09:54 113/53 L 98 04/25/20 09:29 04/25/20 03:57 104/61 98 Weight Weight 133 lb 6.4 oz I&O: 04/24/20 04/25/20 04/26/20 06:59 06:59 06:59 Intake Total 1605 180 Balance 1605 180 Result Diagrams: 04/24/20 04:38 04/24/20 04:38 Additional Labs: Accuchecks 04/25/20 04/25/20 04/25/20 10:47 05:36 00:14 POC Glucose 236 H 156 H 166 H 04/24/20 04/24/20 04/24/20 20:27 16:42 12:19 POC Glucose 155 H 146 H 150 H Hospitalist ROS - Medication Medications: Active Medications Generic Name Dose Route Start Last Admin Trade Name Freq PRN Reason Stop Dose Admin Methylprednisolone Sodium 266 mls @ 266 mls/hr 04/24/20 17:00 04/24/20 17:57 Succinate 1 gm/ Sodium IVPB 04/25/20 17:59 266 mls Chloride 1700 SHAHNAZ Administration Pantoprazole Sodium 40 mg 04/25/20 09:00 04/25/20 09:58 Pantoprazole 40 Mg Granules Packet PO 40 mg DAILY SHAHNAZ Administration - Exam General Appearance: awake alert Eye: PERRL, anicteric sclera Heart: RRR, no murmur, no gallops, normal peripheral pulses Respiratory: no rales, no ronchi, no tachypnea Gastrointestinal: soft, non-tender, non-distended, normal bowel sounds Extremities: no cyanosis, no clubbing, no edema Neurological: cranial nerve grossly intact Neurological - other findings: Lower limb weakness, left foot clonus Hosp A/P - Plan 35-year-old female admitted on account of multiple sclerosis flare. MS flare Received 1 g Solu-Medrol a day ago She received her third year of Solu-Medrol today neurochecks, prophylactic pantoprazole PT/Jayda evaluate today Neurology followingappreciate input.
[2020-04-25 12:06] VITALS: BP 122/81
--- NOTE | 2020-04-25 12:24 | PDOC.NEUPN ---
- Subjective Encounter Date: 04/25/20 Subjective: Patient denies any new complaints. She does have ongoing bilateral lower extremity weakness but improved since admission. - Objective Vital Signs & Weight: Vital Signs (12 hours) Temp Pulse Pulse Pulse Resp BP BP 04/25/20 11:48 98.2 F 69 16 04/25/20 09:54 97.9 F 90 18 04/25/20 09:29 76 80 122/81 116/80 04/25/20 09:28 76 80 122/81 116/80 04/25/20 03:57 97.6 F 54 L 16 BP BP Pulse Ox 04/25/20 11:48 108/54 L 100 04/25/20 09:54 113/53 L 98 04/25/20 09:29 04/25/20 09:28 04/25/20 03:57 104/61 98 Weight Weight 133 lb 6.4 oz I&O: 04/24/20 04/25/20 04/26/20 06:59 06:59 06:59 Intake Total 1605 180 Balance 1605 180 Result Diagrams: 04/24/20 04:38 04/24/20 04:38 Additional Labs: Accuchecks 04/25/20 04/25/20 04/25/20 10:47 05:36 00:14 POC Glucose 236 H 156 H 166 H 04/24/20 04/24/20 20:27 16:42 POC Glucose 155 H 146 H Radiology Reviewed by me: Yes EKG Reviewed by me: Yes ROS - Review of Systems Constitutional: denies: fever, chills, sweats, weakness, malaise, other Eyes: denies: pain, vision change, conjunctivae inflammation, eyelid inflammation, redness, other ENT: denies: ear pain, ear discharge, nose pain, nose discharge, nose congestion, mouth pain, mouth swelling, throat pain, throat swelling, other Respiratory: denies: cough, dry, shortness of breath, hemoptysis, SOB with excertion, pleuritic pain, sputum, wheezing, other Cardiovascular: denies: no pertinent history, AFIB, CAD, CHF, HTN, [place], Syncope, Hyperlipidemia, Mitral valve stenosis, Aortic stenosis, Valve insufficiency, Pulmonary hypertension, Other Gastrointestinal: denies: nausea, vomiting, abdominal pain, diarrhea, constipation, melena, hematochezia, other Genitourinary: denies: dysuria, frequency, incontinence, hematuria, retention, other Musculoskeletal: denies: neck pain, shoulder pain, arm pain, back pain, hand pain, leg pain, foot pain, other Neurological: reports: weakness, numbness. denies: incoordination, change in speech, confusion, seizures, other All Systems: All other systems reviewed; all pertinent +/- noted in HPI/Subj - Medication Medications: Active Medications Generic Name Dose Route Start Last Admin Trade Name Frejessie PRN Reason Stop Dose Admin Methylprednisolone Sodium 266 mls @ 266 mls/hr 04/24/20 17:00 04/24/20 17:57 Succinate 1 gm/ Sodium IVPB 04/25/20 17:59 266 mls Chloride 1700 SHAHNAZ Administration Pantoprazole Sodium 40 mg 04/25/20 09:00 04/25/20 09:58 Pantoprazole 40 Mg Granules Packet PO 40 mg DAILY SHAHNAZ Administration - Exam General Appearance: awake alert Eye: PERRL ENT: normocephalic atraumatic Neck: supple Respiratory: CTAB Cardiovascular: RRR Gastrointestinal: soft Extremities: no cyanosis Skin: normal turgor Neurological: no new deficit Musculoskeletal: normal tone, no muscle wasting PSYCH: normal affect, normal behavior, A&O x 3 Results - Labs Result Diagrams: 04/24/20 04:38 04/24/20 04:38 Lab results: WBC 5.9 thou/uL (4.8-10.8) 04/24/20 04:38 Hgb 13.3 g/dL (12.0-16.0) 04/24/20 04:38 Hct 41.1 % (36.0-47.0) 04/24/20 04:38 MCV 99.3 fL (78.0-98.0) H 04/24/20 04:38 Plt Count 191 thou/uL (130-400) 04/24/20 04:38 Neutrophils % 65.2 % (42.0-75.0) 04/23/20 14:25 Band Neuts % (Manual) 7 % (5-11) 04/24/20 04:38 Sodium 137 mmol/L (136-145) 04/24/20 04:38 Potassium 4.1 mmol/L (3.5-5.1) 04/24/20 04:38 Chloride 105 mmol/L (98-107) 04/24/20 04:38 Carbon Dioxide 24 mmol/L (22-29) 04/24/20 04:38 BUN 12 mg/dL (7.0-18.7) 04/24/20 04:38 Creatinine 0.69 mg/dL (0.6-1.1) 04/24/20 04:38 Glucose 154 mg/dL (70-105) H 04/24/20 04:38 Calcium 8.8 mg/dL (7.8-10.44) 04/24/20 04:38 Total Bilirubin 0.3 mg/dL (0.2-1.2) 04/23/20 14:25 AST 16 U/L (5-34) 04/23/20 14:25 ALT 10 U/L (8-55) 04/23/20 14:25 Alkaline Phosphatase 47 U/L (40-110) 04/23/20 14:25 Serum Total Protein 7.7 g/dL (6.0-8.3) 04/23/20 14:25 Albumin 4.5 g/dL (3.5-5.0) 04/23/20 14:25 - Radiology Interpretation MRI - head Status: image reviewed by me, report reviewed by me Additional Comment: MRI brain consistent with MS PN A/P (1) Glucose intolerance Code(s): E74.39 - OTHER DISORDERS OF INTESTINAL CARBOHYDRATE ABSORPTION Status: Acute (2) Multiple sclerosis exacerbation Code(s): G35 - MULTIPLE SCLEROSIS Status: Acute - Plan Daily Plan: PT/OT, DVT proph w/SCDs 34-year-old female with history significant for multiple sclerosis not on any immunomodulating agent presented with multiple sclerosis exacerbation. MRI of the brain reviewed and was consistent with the multiple sclerosis and new active demyelinating lesion was also noted. Continue high-dose steroid Solu-Medrol 1 g IV daily for 3 days. Today is day #3. Regular insulin sliding scale for steroid-induced hyperglycemia. PPI for steroid-induced GERD. Neurochecks every 4 hours. PT/OT. Patient was made aware that steroids takes at least a week after completing the course to see the effects but as long as there is some improvement which is a good sign. She was also made aware that she needs to follow-up with Dr. Andrews as outpatient for the need of long-term management of multiple sclerosis. Continue medical management per primary team. Plan discussed with the patient and during MDR rounds.
[2020-04-25] MEDS: methylPREDNISolone Sod Succ 1 GM in Sodium Chloride 0.9% 250 ML 250 ML IVPB SCH (17:39)
--- NOTE | 2020-04-25 21:43 | DIS ---
DATE OF ADMISSION: 04/23/2020 DATE OF DISCHARGE: 04/25/2020 DISCHARGE DIAGNOSIS: Multiple sclerosis flare. BRIEF HOSPITAL COURSE: This is a 34-year-old female patient with history of multiple sclerosis, who was recently discharged about a month ago for a multiple sclerosis flare. She presented on the day of admission with worsening spasticity in her right leg with weakness in her left, thus causing her to come to the ED for further evaluation. Of note, she was supposed to have followed with Neurology on her previous discharge, however, she was unable to do so. MRI of her brain revealed a new MS lesion. She was started on high-dose steroids at 1 g Solu-Medrol daily, which she received for three days. She was discharged to follow up with her neurologist for continued management on outpatient basis. DISCHARGE EXAMINATION: GENERAL: The patient is in bed, in no acute distress. RESPIRATORY SYSTEM: Air entry adequate bilaterally. CARDIOVASCULAR SYSTEM: S1 and S2 present and normal. No murmurs, gallops, or rubs. ABDOMEN: Benign. EXTREMITIES: Spasticity and clonus, right lower limb. Slight weakness on left lower limb. DISCHARGE CONDITION: Stable. CONSULTATIONS: 1. Dr. Timmons - Neurology. 2. Physical Therapy. Job ID: [id number]
== END 2020-04-25 19:40 | disposition home or self-care (01) | DRG 60 ==
LOC: ERS 13:16 → 2SE 17:03
PROVIDERS: ADMIT Student in an Organized Health Care Education/Training Program; ATTEND Student in an Organized Health Care Education/Training Program
DX: G35 Multiple sclerosis (principal); Z20.828 Contact with and (suspected) exposure to other viral communicable diseases; K21.9 Gastro-esophageal reflux disease without esophagitis; R73.9 Hyperglycemia, unspecified; T38.0X5A Adverse effect of glucocorticoids and synthetic analogues, initial encounter; E74.39 Other disorders of intestinal carbohydrate absorption
CPT/HCPCS: 36415; 36416; 70553; 80048; 80053; 84703; 85025; 87635; 96365; 96375; A9579; C9113; J2930; J3490; J7050; U0003